=== PATIENT | male | born 1995 | race Hispanic/Latino ===

== ENCOUNTER 2018-04-27 17:09 | Emergency (ER) | payer SELFPAY ==
--- NOTE | 2018-04-27 18:08 | RAD ---
THREE VIEW LEFT FOOT 04/27/18 INDICATION: Penetrating injury. FINDINGS: There is a curved metallic staple overlying the great toe proximal phalanx. No discrete evidence of a displaced associated fracture. There are multiple overlying artifacts limiting detail. No Lisfranc d islocation is seen. IMPRESSION: Metallic staple overlies the great toe proximal phalanx. A discrete fracture is not identified. Once removal of foreign body has been performed, recommend followup imaging of the great toe to exclude un derlying fracture which could be obscured by radiopaque foreign body. POS: [place]
[2018-04-27] MEDS ORDERED: Lidocaine 1% (PF) 30 ML VIAL ONE (18:54)
--- NOTE | 2018-04-27 20:05 | RAD ---
LEFT FOOT THREE VIEWS: 04/27/18 INDICATION: Emergency Room examination. COMPARISON: Prior exam dated 04/27/18. IMPRESSION: The previously seen foreign body transecting the great toe proximal phalanx has been removed. A small defect is seen within the proximal phalanx. There is soft tissue swelling of the right great toe. No additional acute osseous abnormality is evident. POS: [place]
[2018-04-27] MEDS ORDERED: HYDROcodone/Acetaminophen 10/325 mg Tablet ONE (20:40)
== END 2018-04-27 21:00 | disposition home or self-care (01) ==
LOC: ERS 17:09
DX: S91.342A Puncture wound with foreign body, left foot, initial encounter (principal); W45.8XXA Other foreign body or object entering through skin, initial encounter
CPT/HCPCS: 28192; J2001